=== PATIENT | female | born 1985 | race Hispanic/Latino ===

== ENCOUNTER 2023-09-01 09:03 | Emergency (ER) | payer SELFPAY ==
[2023-09-01 09:08] VITALS: BP 109/60
[2023-09-01 09:28] VITALS: BMI 27.9
--- NOTE | 2023-09-01 09:42 | ED.GENMED ---
History of Present Illness
<Darrick Mccabe PA-C - Last Filed: 09/02/23 07:14>
General
Chief Complaint: Abdominal Symptoms
Time Seen by Provider: 09/01/23 09:27
Travel History
Have you had any contact with someone who has COVID-19?: No
Do you have any symptoms of coronavirus? Fever > 100 degrees, chills, cough, shortness of breath, sore throat, loss of taste or smell, muscle aches, or headache?: No
History of Present Illness
History of Present Illness:
The 8-year-old female presents the emergency department for evaluation of left lower quadrant abdominal pain beginning yesterday. Pain worsened today. Described as a pressure, nonradiating, without modifying factors. No fevers, chills, sweats,
nausea, vomiting, diarrhea, dysuria, or hematuria. Does report a mild headache. History of x 1, no other intra-abdominal surgeries. Last menstrual cycle was greater than 1 month ago.
Review of Systems
<Darrick Mccabe PA-C - Last Filed: 09/02/23 07:14>
Review of Systems
Allergies reviewed?: Yes
All Other Systems: ROS reviewed and negative except as documented in HPI and ROS
Phy Exam
<Darrick Mccabe PA-C - Last Filed: 09/02/23 07:14>
Physical Exam
Physical Exam:
GEN: Well appearing, NAD, WDWN
Eyes: PERRLA, EOMs intact, no scleral icterus
HENT: NCAT, oral mucosa moist
Lungs: CTAB, no wheezes, rales, rhonchi, normal chest wall excursion
Cardiac: RRR, no M/R/G, no peripheral edema. Radial pulses 2+ bilat
Abdomen: Soft, nonrigid, mild to moderate left lower quadrant point tenderness, no pelvic tenderness, no palpable masses
Neuro: AO x 3
MSK: No gross deformity or ecchymosis. No edema. No digital clubbing
Skin: No rashes, petechiae. Normal color, no pallor or jaundice.
Psych: Calm, cooperative, proper hygiene
Course
<Darrick Mccabe PA-C - Last Filed: 09/02/23 07:14>
Orders/Labs/Results
Orders:
Orders
09/01/23 09:41
CT Abd/Pel (IV only)-[facility] only Urgent
Comment:
Reason For Exam: LLQ pain
09/01/23 09:42
Test Result ONCE
09/01/23 09:47
Complete Blood Count/With Diff Urgent
Comprehensive Metabolic Panel Urgent
HCG, Serum Qualitative Screen Urgent
09/01/23 09:55
Ketorolac [Toradol] 15 mg IV NOW STA
09/01/23 10:22
Urinalysis Reflex To Culture Urgent
Date Specimen was Collected: 09/01/23
Time Specimen was Collected: 10:18
09/01/23 11:55
US Pelvis W Transvag Combined Urgent
Comment:
Reason For Exam: L pelvic pain, ovarian cyst on CT
Abnormal Lab Results
09/01/23
09:47
MCHC 32.7 L g/dL
(33.0-37.0)
MPV 11.7 H fL
(7.4-10.4)
Chloride 108 H mmol/L
(98-107)
Creatinine 0.5 L mg/dL
(0.6-1.0)
09/01/23 09:47
09/01/23 09:47
Vital Signs
Initial and Last Documented VS:
Initial Vital Signs
Temp Pulse Resp BP Pulse Ox
98.6 F 63 17 109/60 99
09/01/23 09:08 09/01/23 09:08 09/01/23 09:08 09/01/23 09:08 09/01/23 09:08
Last Documented Vital Signs
Temp Pulse Resp BP Pulse Ox
98.6 F 58 18 106/55 99
09/01/23 09:08 09/01/23 15:48 09/01/23 15:48 09/01/23 15:48 09/01/23 15:48
<JANEE Vieira - Last Filed: 09/01/23 17:43>
Orders/Labs/Results
Orders:
Orders
09/01/23 09:41
CT Abd/Pel (IV only)-[facility] only Urgent
Comment:
Reason For Exam: LLQ pain
09/01/23 09:42
Test Result ONCE
09/01/23 09:47
Complete Blood Count/With Diff Urgent
Comprehensive Metabolic Panel Urgent
HCG, Serum Qualitative Screen Urgent
09/01/23 09:55
Ketorolac [Toradol] 15 mg IV NOW STA
09/01/23 10:22
Urinalysis Reflex To Culture Urgent
Date Specimen was Collected: 09/01/23
Time Specimen was Collected: 10:18
09/01/23 11:55
US Pelvis W Transvag Combined Urgent
Comment:
Reason For Exam: L pelvic pain, ovarian cyst on CT
Abnormal Lab Results
09/01/23
09:47
MCHC 32.7 L g/dL
(33.0-37.0)
MPV 11.7 H fL
(7.4-10.4)
Chloride 108 H mmol/L
(98-107)
Creatinine 0.5 L mg/dL
(0.6-1.0)
09/01/23 09:47
09/01/23 09:47
Vital Signs
Initial and Last Documented VS:
Initial Vital Signs
Temp Pulse Resp BP Pulse Ox
98.6 F 63 17 109/60 99
09/01/23 09:08 09/01/23 09:08 09/01/23 09:08 09/01/23 09:08 09/01/23 09:08
Last Documented Vital Signs
Temp Pulse Resp BP Pulse Ox
98.6 F 58 18 106/55 99
09/01/23 09:08 09/01/23 15:48 09/01/23 15:48 09/01/23 15:48 09/01/23 15:48
<Darrick Mccabe PA-C - Last Filed: 09/02/23 07:14>
MDM/Problems Addressed
MDM/Problems Addressed:
Patient's initial CT scan was nondiagnostic but given the presence of bilateral ovarian cyst will send for ultrasound to evaluate for ovarian torsion versus hemorrhagic cyst. Patient clinically stable and labs are otherwise unremarkable. Will sign
out to Kayla Osullivan NP, pending further imaging studies. He is suitable for discharge home and if imaging is unremarkable
<JANEE Vieira - Last Filed: 09/01/23 17:43>
MDM/Problems Addressed
MDM/Problems Addressed:
Patient's initial CT scan was nondiagnostic but given the presence of bilateral ovarian cyst will send for ultrasound to evaluate for ovarian torsion versus hemorrhagic cyst. Patient clinically stable and labs are otherwise unremarkable. Will sign
out to Kayla Osullivan NP, pending further imaging studies. He is suitable for discharge home and if imaging is unremarkable.
1739: Ultrasound shows 2 ovarian cyst. Patient denies pain presently. I reviewed findings on ultrasound with patient via language line .
She is a patient of [facility] d/c close outpt follow up with clinic and will give info on [employer].
<JANEE Vieira - Last Filed: 09/01/23 17:43>
*Radiology
Radiology exam reviewed: radiology read reviewed
*Critical Care Note
Total Time (30-74mins, 75-104mins- exclusive of procedures): Not Applicable
ED Attending Note
<Darrick Mccabe PA-C - Last Filed: 09/02/23 07:14>
-
Portions of this chart may have been created with voice recognition software.� Occasional wrong word or��sound alike� substitutions may have occurred due to the inherent limitations of voice recognition software.
Discharge Plan
Departure
Patient Disposition: Home (Routine Discharge)
Date of Disposition: 09/01/23
Time of Disposition: 17:40
Patient with high blood pressure during this ER visit?: No
Condition: Fair
Discharge Problem:
Ovarian cyst
Instructions: Ovarian Cyst ED
Referrals:
Shelia Luu, DO [Active] -
UNKNOWN - PT DOES,NOT KNOW [Family Provider] -
Activity Restrictions/Additional Instructions:
Follow-up with [facility] as discussed: Call for appointment : [phone].
Also you were given gynecology referral. Return if any worsening of symptoms. You may take ibuprofen 600 mg every 8 hours for discomfort
Interventions
Interventions:
*Risk Screen - Suicide Last Done: 09/01/23 09:40
*General Assessment Last Done: 09/01/23 09:40
*Neglect/Abuse Screening Last Done: 09/01/23 09:40
ED- Fall Risk Assessment Last Done: 09/01/23 09:49
*ED COVID-19 Vaccine History Last Done: 09/01/23 09:11
*Nursing Disposition Last Done: 09/01/23 17:51
EQ-Hwhlov-Ekzmemznhr Assessment Last Done: 09/01/23 09:48
Discharge Date and Time
Discharge Date/Time: 09/01/23 17:51
Print Language: TURKISH
[2023-09-01] MEDS: TORADOL 15 MG IV (09:58)
[2023-09-01 10:09] LABS: % Basophils 0.9 % (0-2); % Eosinophils 1.6 % (0-6); % Immature Granulocytes 0.3 % (0-0.5); % Lymphocytes 42.2 % (20.5-51.1); Absolute Basophils 0.1 10^3/uL (0-0.2); Absolute Eosinophils 0.1 10^3/uL (0-0.7); Absolute Lymphocytes 2.9 10^3/uL (1.2-3.4); Absolute Monocytes 0.4 10^3/uL (0.1-0.6); Absolute Neutrophils 3.4 10^3/uL (1.4-6.5); Hematocrit 42.5 % (37.0-47.0); Hemoglobin 13.9 g/dL (12.0-16.0); Mean Corp Hgb Conc. 32.7 g/dL (33.0-37.0); Mean Corpuscular Hgb 29.2 pg (27.0-31.0); Mean Corpuscular Volume 89.3 fL (81.0-99.0); Mean Platelet Volume 11.7 fL (7.4-10.4); Nucleated Red Blood Cells % 0 %; Platelet Count 215 10^3/uL (130-400); Red Blood Cell Count 4.76 10^6/uL (4.20-5.40); Red Cell Dist. Width 13.8 % (11.5-14.5); White Blood Cell Count 6.9 10^3/uL (4.8-10.8)
[2023-09-01 10:25] LABS: HCG, Serum Qualitative Screen Negative
[2023-09-01 10:28] LABS: ALT (SGPT) 22 U/L (0-35); AST (SGOT) 26 U/L (14-36); Albumin 4.1 g/dl (3.5-5.0); Alkaline Phosphatase 94 U/L (38-126); Blood Urea Nitrogen 11 mg/dl (7-17); Carbon Dioxide 23 mmol/L (22-30); Chloride 108 mmol/L (98-107); Estimated Creatinine Clearance > 125 ml/min; Glucose 99 mg/dl (70-99); Potassium 4.3 mmol/L (3.5-5.1); Sodium 136 mmol/L (135-145); Total Bilirubin 0.8 mg/dl (0.2-1.3); eGFR > 60.00
[2023-09-01 10:39] LABS: Urine Albumin Negative (Neg - Trace); Urine Bilirubin Negative (Negative); Urine Character Clear (Clear); Urine Color Yellow; Urine Glucose Negative (Negative); Urine Ketone Negative (Negative); Urine Leukocyte Negative (Negative); Urine Nitrite Negative (Negative); Urine Occult Blood Negative (Negative); Urine Urobilinogen Negative (Neg - 1+)
[2023-09-01 12:43] VITALS: BP 99/57
[2023-09-01 15:48] VITALS: BP 106/55
== END 2023-09-01 17:51 | disposition home or self-care (01) ==
LOC: EMR 09:03
PROVIDERS: Physician Assistant; EMERGENCY PHYSICIAN Emergency Medicine
DX: N83.202 Unspecified ovarian cyst, left side (principal); N83.201 Unspecified ovarian cyst, right side
CPT/HCPCS: 99285; 96374; 74177; 76830; 76856; 80053; 81003; 84703; 85025; Q9967

== ENCOUNTER → 2024-09-06 09:43 | Outpatient (REF) | payer OTHER, SELFPAY | LOC: RAD 09:43 | PROVIDERS: ATTENDING PHYSICIAN Nurse Practitioner Adult Health | DX: M25.512 Pain in left shoulder (principal) | CPT/HCPCS: 73030 ==